=== PATIENT | male | born 1990 | race Hispanic/Latino ===

== ENCOUNTER 2020-12-03 23:32 | Emergency (ER) | payer OTHER ==
[2020-12-03] MEDS ORDERED: TETRACAINE HCL 0.5% 4 ML OPHTH SOLN ONE (23:38)
[2020-12-03] MEDS ORDERED: FLUORESCEIN SODIUM 1 STRIP STRIP ONE (23:38)
== END 2020-12-04 00:08 | disposition home or self-care (01) ==
LOC: EDH 23:32
DX: S05.01XA Injury of conjunctiva and corneal abrasion without foreign body, right eye, initial encounter (principal); X58.XXXA Exposure to other specified factors, initial encounter; Y93.89 Activity, other specified; Y92.89 Other specified places as the place of occurrence of the external cause; Y99.8 Other external cause status